=== PATIENT | female | born 1935 | race Caucasian/White ===

== ENCOUNTER → 2017-11-13 | Outpatient (REF) | payer MEDICARE ==
[~2017-11-13] MED LIST: ASPI81TA32 PO; GARL1CAP PO; LEV75 PO; LUTE20CA11 PO; MULT-820 PO
== END ==
LOC: ZZSENDIN 17:11
PROVIDERS: ATTEND Urology
DX: N39.0 Urinary tract infection, site not specified (principal); B96.89 Other specified bacterial agents as the cause of diseases classified elsewhere
CPT/HCPCS: 87077; 87088; 87186

== ENCOUNTER → 2018-01-01 | Outpatient (CLI) | payer MEDICARE ==
--- NOTE | 2018-01-01 10:03 | RADIOLOGY IMAGING REPORT ---
FACILITY: [facility] PATIENT NAME: Jessika Gallo : 1935 MR: [id number] V: [id number] EXAM DATE: ORDERING PHYSICIAN: GABE MENDOZA TECHNOLOGIST: [facility] Patient: Jessika Gallo : 1935 Visit/Account:[id number] Date of Sevice: 01/01/2018 CT scan of the abdomen and pelvis without contrast. HISTORY: UTIs. COMPARISON: None. [address] images were obtained of the abdomen and pelvis. No intravenous or oral contrast area One of the following dose optimization techniques was utilized in the performance of this exam: Automated exposure control; adjustment of the mA and/or kV according to the patient's size; or use of an iterative reconstruction technique. Specific details can be referenced in the facility's radiol ogy CT exam operational policy. The study is limited to the urinary tract for evaluation of stone di sease. FINDINGS: The lungs are voluminous. The heart is mildly enlarged. The mitral valve annulus is partially calci fied. The liver and spleen are normal in size. The gallbladder is absent. Surgical clips are present in t he right upper abdomen. The pancreas is normal in size. The abdominal aorta is calcified and mildly ectatic. The suprarenal abdominal aorta measures 2.9 cm in greatest AP diameter. The infrarenal ab dominal aorta measures 2.5 cm in transverse diameter. The iliac arteries are calcified and mildly ec tatic. The right kidney measures 5.7 cm in length. The left kidney measures 9.6 cm in length. No h ydronephrosis. No abnormal renal or ureteral calcifications are identified. The ureters are mostly obscured. The urinary bladder is incompletely distended. The uterus is normal in size. Phleboliths are presen t in the true pelvis. The ovaries are not well visualized. Unopacified bowel loops are scattered in the abdomen and pelvis. The appendix is not well-visualized. A small density probably representing a pill fragment is present in the sigmoid colon. A moderate amount of stool is present in the colon . Degenerative changes are present in the spine. 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 A mod erate chronic appearing compression fracture in his present in the L1 vertebral body. No bulky adeno sohail. IMPRESSION: Right renal atrophy. Otherwise negative for renal stone or ureteral obstruction. Absent gallbladder. Atherosclerosis. Otherwise negative for renal stone or obstruction. Report Dictated By: Alex Coon MD at 01/01/2018 9:40 AM Report E-Signed By: Alex Coon MD at 01/01/2018 9:59 AM WSN:[email or web address]
== END ==
LOC: CT 01:50
PROVIDERS: ATTEND Urology
DX: N26.1 Atrophy of kidney (terminal) (principal); Z90.49 Acquired absence of other specified parts of digestive tract; I25.10 Atherosclerotic heart disease of native coronary artery without angina pectoris
CPT/HCPCS: 74176